=== PATIENT | female | born 1995 | race Caucasian/White ===

== ENCOUNTER 2024-09-08 09:25 | Emergency (ER) | payer OTHER, SELFPAY ==
[2024-09-08 09:57] VITALS: BP 138/89; PULSE 90; RESP 22; TEMP 37.6; O2SAT 98; BMI 32.6
--- NOTE | 2024-09-08 10:49 | ED_ITS ---
HPI - General Adult General Date Seen: 09/08/24 Chief complaint: Psychiatric Problem/Disorder Stated complaint: mental health Time Seen by Provider: 09/08/24 10:48 History of Present Illness HPI narrative: 29-year-old female presenting to the ER today. She has been very upset for the past 5 days with a lot of crying and feeling upset. She has a history of obsessive-compulsive disorder and is currently doing therapy. She has a history of anxiety and she is on medications, but they are not helping her. Per records through [facility] she has a past medical history of panic disorder, anxiety, OCD, prolactinoma, GERD. Med listing the [employer] system includes control, vitamin-C and iron, a course of Ativan (prescribed in 2018), sertraline. History is obtained mostly from the patient's but also little bit from the patient and from the patient's mother. They report that she has a history of anxiety, OCD and that she is in weekly therapy every Tuesday morning. 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 Her weekly schedule includes scheduled time off for her to go to her therapy every Tuesday. Apparently this week she has been having multiple stressors, most notably that her boss at work has been asking her if she can go to working full-time (rather than have time off for therapy). She has been having escalating anxiety and compulsions since Tuesday. It has been to the point where she has been crying, not sleeping well, and D compensating. She has not been unsafe. No thoughts of self-harm or suicide. The patient and her came from their home in [place] down here to [place] to stay with the patient's mother and father for a couple of days. She was able to go to [employer] and little bit in her knee yesterday but has had increasing anxiety overnight and today. Her gave her an extra dose of sertraline yesterday morning, in hopes that it might help her get better. It has not helped yet. She is just ?stuck. ? And they cannot get her out of her anxious trach. They do have a previous prescription for lorazepam, but have not used it for a couple of years. They came here to the ER hoping we could give her lorazepam or a similar emergency medication for her anxiety to help her feel better. Knee not think she needs inpatient hospitalization for Related Data Home Medications ?Medication ?Instructions ?Recorded ?Confirmed bromocriptine 09/08/24 pantoprazole 40 mg tablet,delayed 40 mg PO BID 09/08/24 09/08/24 release sertraline 50 mg tablet 50 mg PO DAILY 09/08/24 09/08/24 Previous Rx's ?Medication ?Instructions ?Recorded lorazepam 1 mg tablet (Ativan) 1 mg PO Q8H PRN #10 tabs 09/08/24 Allergies Allergy/AdvReac Type Severity Reaction Status Date / Time No Known Drug Allergies Allergy Verified 09/08/24 09:53 PFSH PFS Social History Smoking Status: Never smoker Do you use any of these nicotine containing products: None Second hand tobacco smoke exposure: No How often do you have a drink containing alcohol: monthly or less How many standard drinks containing alcohol do you have on a typical day: 1 or 2 How often do you have six or more drinks on one occasion: Never AUDIT-C Alcohol total score: 1 Non-prescribed substance use: denies use service: No Exam Narrative: Exam Narrative: Constitutional: Appears well-developed and well-nourished. Alert. Conversant. Non toxic. HENT: Head: Atraumatic. Nose: Nose normal. Mouth/Throat: Oral mucosa is clear and moist. no trismus. Pharynx normal. Eyes: Conjunctivae normal. EOM normal. Pupils equal, round, and reactive to light. No scleral icterus. Neck: Normal range of motion. Neck supple. No tracheal deviation present. Cardiovascular: Normal rate, regular rhythm. No gallop. No friction rub. No murmur heard. Pulmonary/Chest: Effort normal. No stridor. No respiratory distress. No wheezes. No rales. No rhonchi . Musculoskeletal: RUE: Normal range of motion. No tenderness. No deformity LUE: Normal range of motion. No tenderness. No deformity RLE: Normal range of motion. No edema. No tenderness. No deformity LLE: Normal range of motion. No edema. No tenderness. No deformity Neurological: Alert and oriented to person, place, and time. Normal strength. CN II-VII intact. No sensory deficit. GCS eye subscore is 4. GCS verbal subscore is 5. GCS motor subscore is 6. Normal coordination Skin: Skin is warm and dry. No rash noted. No pallor. Normal capillary refill. Psychiatric: Initially tearful, breathing rapidly, seems anxious. Her and mother are at her side and they are both attentive but also very anxious. rapidly provides history for her. He is very supportive, but almost does not give her a chance to chime in with her own information. See HPI. She is very anxious, not sleeping at night, she is having compulsions and sometimes feeling a bit dizzy. She is not suicidal or homicidal. No hallucinations. Const: Vital Signs, click to edit/add: Vital Signs - 24 hr 09/08/24 09:57 Temperature 99.6 F Pulse Rate [Pulse Oximeter] 90 Respiratory Rate 22 Blood Pressure [Ri ght Forearm] 138/89 Pulse Oximetry 98 Oxygen Delivery Me thod Room Air Course Course ED Course: Recheck-feeling somewhat better after Ativan. Patient and her family are comfortable discharging home. Vital Signs Vital signs: Initial Vital Signs Temperature 99.6 F 09/08/24 09:57 Temperature Source Temporal Artery Scan 09/08/24 09:57 Pulse Rate 90 09/08/24 09:57 Pulse Rhythm Regular 09/08/24 09:57 Respiratory Rate 22 09/08/24 09:57 Blood Pressure 138/89 09/08/24 09:57 Blood Pressure Mean 105 09/08/24 09:57 Blood Pressure Position Sitting 09/08/24 09:57 Pulse Oximetry 98 09/08/24 09:57 Oxygen Delivery Method Room Air 09/08/24 09:57 Vital Signs Temperature 99.6 F 09/08/24 09:57 Pulse Rate 90 09/08/24 09:57 Respiratory Rate 22 09/08/24 09:57 Blood Pressure 138/89 09/08/24 09:57 Pulse Oximetry 98 09/08/24 09:57 Oxygen Delivery Method Room Air 09/08/24 09:57 Temperature 99.6 F 09/08/24 09:57 Pulse Rate 90 09/08/24 09:57 Respiratory Rate 22 09/08/24 09:57 Blood Pressure 138/89 09/08/24 09:57 Pulse Oximetry 98 09/08/24 09:57 Oxygen Delivery Method Room Air 09/08/24 09:57 Medications Administered Medications: Discontinued Medications Generic Name Dose Route Start Last Admin Trade Name Freq PRN Reason Stop Dose Admin Lorazepam 1 mg 09/08/24 11:12 09/08/24 11:18 Lorazepam 1 Mg Tablet PO 09/08/24 11:13 1 mg ONCE ONE Administration Medical Decision Making MDM Narrative Medical decision making narrative: Pleasant 29-year-old female presenting with her mother with concern for escalating anxiety and compulsions this week. This feels like her major stressor is related to work. She is already on sertraline and sees therapy every Tuesday for this problem. They came here to the ER because they do not have any of her normal emergency anxiety medication. They have it at home but have not used it for years. After oral Ativan she is improving here in the ER and they feel comfortable discharging to home. I agreed to give him a short prescription for Ativan that he can use p.r.n.. Ativan 10 tablets. Discussed the sedation and addictive risk with benzos. Also discussed that she should have follow-up with her regular doctors and her therapist by Tuesday to recheck. They may want to consider adjusting her long-term medication regimen. Further refills for Ativan should come from her regular providers, not through the ER Precautions for return to the ER reviewed. Discussed in detail the potential options here. At this point we do not feel that she needs to have a tele psych consult for med management here in the ER today. Likewise patient and family do not feel that she needs inpatient placement. They are comfortable discharging home at this point. Discharge Plan Discharge Clinical Impression: Acute anxiety Patient Disposition: Home, Self-Care Condition: Stable Instructions: Anxiety (ED) Additional Instructions: Use Ativan if needed for anxiety. Be careful with Ativan because it can cause dizziness and drowsiness so do not drive a car or operate machinery for 6 hours after taking Ativan. Please follow-up with your regular doctor and your therapist this week to rech danielito. You can talk to your your regular care team about your medication regimen and ask them if they think they need to adjust your medication regimen. If you need more than a couple of days of Ativan, you should talk to your regular team and they can give you a refill prescription. Usually the emergency department will not give refills for Ativan If you have worsening anxiety or any problems, please come back to the ER right away. Prescriptions: New lorazepam [Ativan] 1 mg tablet 1 mg PO Q8H PRNQty: 10 0RF No Action sertraline 50 mg tablet 50 mg PO DAILY bromocriptine Rx Instructions: 0.125 QD pantoprazole 40 mg tablet,delayed release (DR/EC) 40 mg PO BID Follow Up/Referrals: Provider,Not a Local [Primary Care Provider] - Stand Alone Forms: [facility] Info Instructions
[2024-09-08] MEDS: LORazepam 1 MG TABLET PO (11:18)
--- OUTSIDE RECORDS SUMMARY | 2024-09-08 11:29 | XMS_ITS | Clinical Summary ---
Author Organization [facility] Address [address], [place] [address] Care Team Providers Care Multiple Cut Off Saw Operator Name Role Phone Unavailable Primary Care Provider Unavailabl e Source Comments You are receiving this document as you are listed as the primary care provider,follow-up provider, or the patient has been referred to you for consultation.This is in compliance with the Medicare andMedicaid EHR Incentive Program,which states Providers who transition their patient to another setting of careor provider of care or refers their patient to another provider of care shouldprovide summary care record for each transition of care or referral. [facility] Social History Tobacco Use Types Packs/Day Years Used Date Smoking Tobacco: Never Assessed Sex and Gender Information Value Date Recorded Sex Assigned at Not on file Gender Identity Not on file Sexual Orientation Not on file Plan of Treatment Health Maintenance Due Date Last Done Comments Cervical Cancer Screening Due 1997 Hep C Screening (Preventive Services) 1997 HIV Screening (Preventive Services) 2013 Adult Preventive Visit 2015 HepB (1) 2016 COVID-19 Vaccine ( season) 2024 08/17/2022, 08/05/2021, 12/26/2020, Additional history exists Influenza (#1) 2024 08/17/2022, 05/29, 05/04/2019, Additional history exists DTaP/Tdap/Td (3 - Tdap) 02/11/2025 02/11/2015, 05/06 Zoster/Shingles (1 of 2) 2047 HepA Completed 05/06/2008, 03/10/2007 HPV Vaccine Completed 08/20/2013, 03/29, 02/16/2013 MCV4 Completed 03/26/2014, 05/06/2008 Hib Aged Out No longer eligi ble based on patient's age to complete this topic IPV (Polio) Aged Out No longer eligi ble based on patient's age to complete this topic Pneumococcal Aged Out No longer eligi ble based on patient's age to complete this topic Guarantor Name Account Type Relation to Patient Date of Phone Billing Address Faye Mcclelland Personal/Family Self 1995 [address] [place] [id number] Simeon Werner Personal/Family Self [birth year][address] [place] [address] [place] [facility] [address]
--- OUTSIDE RECORDS SUMMARY | 2024-09-08 11:29 | XMS_ITS | Clinical Summary ---
Author Organization [facility] Address [place], [place] [address] Care Team Providers Care [employer] Cafeteria Cook Head Name Role Phone Nicol Hammer MD Primary Care Provi dilip Enio Bennett MD Unavailable [phone] Allergies No known active allergies Medications iron,carbonyl-kadeem min C (VITRON-C) 65 mg iron- 125 mg Delayed-Release tablet Take 1 Tab by mouth once daily. 0 8 Active LORazepam (ATIVAN) 1 mg tabletIndications: Anxiety Take 1 tablet by mouth every 6 hours if needed. 20 tablet 8 Active ethinyl estradiol-norelges trom (Xulane) 150-35 mcg/24 hr patchIndications:E ncounter for contraceptive management, unspecified type Apply 1 Patch on dry, clean, hairless skin once weekly. APPLY ON DRY, CLEAN, HAIRLESS SKIN. 12 Patch 4 4 Active pantoprazole (PROTONIX) 40 mg delayed-release tabletIndications: Chronic GERD Take 1 Tablet (40 mg) by mouth two times daily before meals. 180 Tablet 3 4 Active sertraline (ZOLOFT) 50 mg tabletIndications: Obsessive-compulsi ve disorder, unspecified type Take 1 Tablet (50 mg) by mouth once daily. 90 Tablet 3 4 Active bromocriptine 2.5 mg tabletIndications: Prolactinoma (HC) TAKE 1/2 TABLET BY MOUTH EVERY DAY 45 Tablet 3 4 Active Active Problems Problem Noted Date Diagnosed Date Iron deficiency anemia 10/25/2017 Obsessive compulsive disorder 06/25/2016 Prolactinoma 02/13/2016 Anxiety state, unspecified 10/12/2011 Panic disorder without agoraphobia 09/29/2011 Viral warts, unspecified 02/17/2007 ALLERGIC RHINITIS CAUSE UNSPECIFIED 02/17/2007 Esophageal reflux 11/26/2006 Immunizations Name Administration Dates Next Due AMB Influenza, IIV3 (Age >=3 years) Preserve Free (Flu Clinic Only) 05/31/2012,06/16/2011 AMB Influenza, IIV3 (Age >=3 years)(Flu Clinic Only) 06/13/2013,06/19/2008 AMB Influenza, IIV4 PF (=>6 mos Flulaval,Fluzone Fluarix)(Flu Clinic Only) 05/20/2017,06/12/2014 COVID-19 vaccine ([employer] 30mcg/0.3mL) 12YO+ BIVALENT PF, MDV 08/17/2022 COVID-19 vaccine ([employer] 30mcg/0.3mL) PF, MDV 08/05/2021,12/26/2020,12/05/2020 DTaP 04/18/2002, 8,1997,07/29,1997 HIB PRP-OMP (PedvaxHIB) 05/12/1998 HIB-HepB (Comvax) 1997,1997 Hepatitis A (Peds) 05/06/2008,03/10/2007 008 Hepatitis B (Peds) 01/14/1998 Human Papilloma Virus Vaccine 08/20/2013, 013,02/16/2013 Inactivated Polio Vaccine 04/18/2002,1997, 1997 Influenza A (H1N1), Inactiva crow (Age >=3 Years) 08/13/2009 Influenza, IIV3 (Age >=3 years) 05/14/2010,06/04,07/12/2007 Influenza, IIV4 08/17/2022,04/20/2018,06/07/2016 Influenza,CCIIV4 PRESERV FREE 06/12/2020, 019 MENINGOCOCCAL VACCINE 2 VIAL 2MO-55YO (MENVEO) 03/26/2014 MMR 04/18/2002,10/16/1998 Meningococcal Vaccine (Menactra) 05/06/2008 Oral Polio Vaccine 05/12/1998 Tdap 02/11/2015,05/06/2008 Varicella Vaccine 03/10/2007,10/16/1998 Family History Medical History Relation Name Comments Good Health Father Diabetes Maternal Grandfather Heart Disease Maternal Grandfather Hyperlipidemia Maternal Grandfather Hypertension Maternal Grandfather Psychiatric illness Maternal Grandfather anxiety/depression Hyperlipidemia Maternal Grandmother Hypertension Maternal Grandmother Psychiatric illness Maternal Grandmother anxiety/depression Thyroid Disease Maternal Grandmother Thyroid Disease Maternal Uncle 1 Psychiatric illness Maternal Uncle 2 anxi ety/depression Alcohol/Drug Maternal Uncle 3 sober 5 yea rs Good Health Mother Psychiatric illness Mother anxiety/ depression Alcohol/Drug Paternal Grandfather Asthma No Family History Cancer-breast No Family History Cancer-colon No Family History Stroke No Family History Relation Name Status Comments Father Maternal Grandfather Maternal Grandmother Maternal Uncle 1 Maternal Uncle 2 Maternal Uncle 3 Mother Paternal Grandfather Social History Tobacco Use Types Packs/Day Years Used Date Smoking Tobacco: Never Smokeless Tobacco: Never Tobacco Cessation:Counseling Given: Yes Comments:no exposure Alcohol Use Standard Drinks/Week Comments No 0 (1 standard drink = 0.6 oz pur e alcohol) PHQ-2 Answer Date Recorded PHQ-2 TOTAL SCORE 1 10/11/2023 Social Connections Answer Date Recorded Frequency of Communication with Friends and Fami ly 0 08/17/2022 Financial Resource Strain Answer Date R ecorded Difficulty of Paying Living Expenses 3 08/17/2022 Difficulty of Paying Living Expenses Not on file 08/17/2022 Food Insecurity Answer Date Recorded Worried About Running Out of Food in the Last Ye ar 1 08/17/2022 Transportation Needs Answer Date Record ed Lack of Transportation (Medical) 1 08/17/2022 Housing Stability Answer Date Recorded Unable to Pay for Housing in the Last Year 1 08/17/2022 Comments No Sex and Gender Information Value Date Recorded Sex Assigned at Female 12/03/2020 1:06 PM CDT Legal Sex Female 5:27 AM BILLING AND INSURANCE COORDINATOR Gender Identity Female 12/03/2020 1:06 PM CDT Sexual Orientation Straight 12/03/2020 1: 06 PM CDT Obstetrics History Para Term AB IAB SAB Ectopic Multiple Livin g Live Births 0 0 0 0 0 0 0 0 0 0 0 Last Filed Vital Signs Vital Sign Reading Time Taken Comments Blood Pressure 106/70 08/17/2022 3:13 PM BILLING AND INSURANCE COORDINATOR Pulse 68 08/17/2022 3:13 PM BILLING AND INSURANCE COORDINATOR Temperature 37 C (98.6 F) 01/18/2022 3:00 PM CDT Respiratory Rate 16 01/22/2022 3:10 PM CDT Oxygen Saturation 99% 08/17/2022 3:13 PM BILLING AND INSURANCE COORDINATOR Inhaled Oxygen Concentration - - Weight 90.3 kg (199 lb) 08/17/2022 3:13 PM BILLING AND INSURANCE COORDINATOR Height 161.5 cm (5' 3.58) 08/17/2022 3:13 PM CS T Body Mass Index 34.61 08/17/2022 3:13 PM BILLING AND INSURANCE COORDINATOR Plan of Treatment Health Maintenance Due Date Last Done Comments HIV for age 15-65 2012 Hepatitis C screening for age 18-79 2015 Pap test for age 21-65 04/17/2022 04/17/2019 BMI (ht and wt on same day) for age 18+ 08/17/2023 08/17/2022, 03/05/2022, 05/06/2021, Additional history exists COVID-19 vaccine series ( season) 2024 08/17/2022, 08/05/2021, 12/26/2020, Additional history exists Influenza for age 9-49 04/29/2024 , 06/12/2020, 05/04/2019, Additional history exists Depression screening for age 12+ 10/11/2024 10/11/2023, 05/06/2021, 05/06/2021, Additional history exists Tetanus booster 02/11/2025 02/11/2015, 05/06/2008 Tdap Completed 02/11/2015, 05/06/2008 Pneumococcal series for age 6-49 Aged Out No longer eligible based on patient's age to complete this topic Procedures Procedure Name Priority Date/Time Associated Diagnosis Comments BOILER OPERATOR HELPER THIN PREP PAP SCREEN IMAGED Routine 04/17/2019 11:20 AM CDT Screening for malignant neoplasm of cervix from Last 3 Months or Most Recently Relevant to Health Maintenance Results * BOILER OPERATOR HELPER THIN PREP PAP SCREEN IMAGED [[id number]] (04/17/2019 11:20 AM CDT) Case Report Gynecologic Cytology Report Case: [id number] Authorizing Provider: Antionette Garzon MD Collected: 04/17/2019 1120 Ordering Location: [facility] Received: 04/17/2019 1203 Clinic First Screen: Mason Mer[place] Specimen: BOILER OPERATOR HELPER ThinPrep Vial Screening, Cervical 04/26/2019 3:52 PM CDT [facility] [employer] [facility] INTERPRETATION/ RESULT NEGATIVE FOR INTRAEPITHELIAL LESION OR MALIGNANCY (NIL) (none) 04/26/2019 3:52 PM CDT [facility] IMEN ADEQUACY Satisfactory for evaluation No endocervical component seen 04/26/2019 3:52 PM CDT [facility] HPV REQUEST HPV if ASCUS 04/26/2019 3:52 PM CDT [facility] Date of LMP 04/09/2019 04/26/2019 3:52 PM CDT [facility] Last Pap Date N/A 04/26/2019 3:52 PM CDT [facility] Last Pap Result First Pap/Unknown 3:52 PM CDT [facility] Abnormal Pap or Berclair Bx in last 5 years No 04/26/2019 3:52 PM CDT [facility] Menstrual Status Regular Periods 04/26/2019 3:52 PM CDT [facility] Berclair Bx Done Today No 04/26/2019 3:52 PM CDT [facility] Additional Information None given 04/26/2019 3:52 PM CDT [facility] Automated Review Successful 04/26/2019 3:52 PM CDT [facility] Comment:Specimen processed s uccessfully by automated sheet metal technician device, ThinPrep Imaging System, [email or web address] Note The pap test is a screening technique, not a diagnostic procedure. It is used primarily to screen for squamous cancers and precursor lesions. Published studies have shown that it is subject to both false negative and false positive results. The pap test should not be used as the sole means to diagnose or exclude pre-malignant and malignant lesions. Cytology is screened and interpreted at [facility] - [address], [place] [address] and [facility] - [address]; [place] [address] [address] [facility] - [address]; [place] [address] and [facility] [address]; [place] [address] 04/26/2019 3:52 PM CDT [facility] Other (Cervical) Non-Blood / Unknown 04/17/2019 11:20 AM CDT 04/17/2019 12:03 PM CDT Antionette Garzon MD PATHOLOGY/CYTOLOGY Luna Result Performing Organization Address City/State/[facility] Co de Phone Number [facility] [address] [place] [address], [place] from Last 3 Months or Most Recently Relevant to Health Maintenance Insurance [address] [place] [id number] GIANNI CHAVEZ [id number] [place] [id number] [address] [place] [id number] Care Teams [employer] Cafeter[employer] Cook Head Relationship Specialty Start Date End Date Nicol Hammer MD [address] [place] [address] PCP - General Family Practice 03/05/22 Enio Bennett MD [address] [address] Endocrinology 05/03/24
== END 2024-09-08 12:22 | disposition home or self-care (01) ==
PROVIDERS: Emergency Provider Emergency Medicine
DX: F41.9 Anxiety disorder, unspecified (principal)
CPT/HCPCS: 99283; A9270